=== PATIENT | female | born 1980 | race African-American/Black ===

== ENCOUNTER → 2016-09-17 | Outpatient (CLI) | payer OTHER ==
[~2016-09-17] MED LIST: FLX10 PO
--- NOTE | 2016-09-17 14:19 | DIAGNOSTIC IMAGING REPORT ---
LEFT FOOT MIN 3 VIEWS ROUTINE CLINICAL HISTORY: Left fourth toe pain COMPARISON: April 03, 2015 DISCUSSION: No acute fractures or dislocations are visualized. There are no erosive or destructive changes. There is no evidence for soft tissue swelling. IMPRESSION: No fractures identified. Electronically signed by: Refugio Kimbrough M.D. 09/17/2016 2:17 PM Dictated Date/Time: 09/17/2016 2:16 PM
== END | disposition home or self-care (01) ==
LOC: C.RAD 13:39
PROVIDERS: ATTEND Podiatrist Foot & Ankle Surgery
DX: S92.522A Displaced fracture of middle phalanx of left lesser toe(s), initial encounter for closed fracture (principal); R26.2 Difficulty in walking, not elsewhere classified; M79.675 Pain in left toe(s); X58.XXXA Exposure to other specified factors, initial encounter